=== PATIENT | female | born 1940 | race Caucasian/White ===

== ENCOUNTER 2017-01-03 05:52 | Inpatient (IN) | payer MEDICARE, OTHER ==
[2016-12-29 13:39] LABS: BASOPHILS 0.8 %; BASOPHILS ABSOLUTE 0.06 10/3/uL (0.0-0.16); EOSINOPHILS 4.3 %; EOSINOPHILS ABSOLUTE 0.33 10/3/uL (0.0-0.53); HEMATOCRIT 41.4 % (36.0-48.0); HEMOGLOBIN 14.2 g/dL (12.0-16.0); IMMATURE GRANULOCYTES 0.4 %; IMMATURE GRANULOCYTES ABSOLUTE 0.03 10/3/uL (0.0-0.11); LYMPHOCYTES 40.2 %; LYMPHOCYTES ABSOLUTE 3.12 10/3/uL (0.67-4.30); MANUAL DIFF NO %; MEAN CORPUS HGB CONC 34.3 g/dL (32.0-36.0); MEAN CORPUSCULAR HEMOGLOB 33.3 pg (26.0-34.0); MEAN PLATELET VOLUME 9.7 fL (9.2-13.0); MONOCYTES 6.4 %; NEUTROPHILS 47.9 %; NEUTROPHILS ABSOLUTE 3.72 10/3/uL (2.02-8.40); PLATELET COUNT 311 10/3/uL (150-400); RBC DISTRIBUTION WIDTH 13.6 % (12.0-16.0); RED CELL COUNT 4.27 10/6/uL (4.0-5.6); WHITE BLOOD CELLS 7.8 10/3/uL (4.5-10.5)
[2016-12-29 13:44] LABS: INTERNATIONAL NORMAL RATI 1.1 UNITS (-)
[2016-12-29 13:50] LABS: BUN (BLOOD UREA NITROGEN) 8 MG/DL (6-23); CALCIUM, SERUM 8.9 MG/DL (8.5-10.4); CHLORIDE, SERUM 109 MMOL/L (96-112); CO2 (CARBON DIOXIDE) 30 MMOL/L (24-34); CREATININE 0.57 MG/DL (0.55-1.02); GFR AFRICAN AMERICAN 104 ML/MIN (>=60); GFR NON AFRICAN AMERICAN 90 ML/MIN (>=60); GLUCOSE, SERUM 119 MG/DL (60-99); POTASSIUM, SERUM 3.8 MMOL/L (3.5-5.3); SODIUM, SERUM 147 MMOL/L (135-148)
[2016-12-29 14:41] LABS: ASCORBIC ACID (UR NOT ORDER) NEG (NEG); BILIRUBIN, URINE NEGATIVE (NEG); KETONE, URINE NEGATIVE (NEG); LEUKOCYTE ESTERASE(NOT OR SMALL (NEG); WBC (NOT ORDERED) (RFLEX) 3 (0-5)
--- NOTE | ~2017-01-03 | OP ---
Record Of Operation [facility] [address] [place]. [address] NAME: LEXII ALEJANDRO : 40 STATUS : DIS IN PAT#: [id number] AGE: 76 ADM/REG DATE : 01/03/17 MR#: [id number] REPORT SERV DATE: 01/15/17 DICTATED BY: KEENAN ROSAS DATE: 01/14/17 REPORT STATUS : Draft TRANSCRIBED BY: MENDEL DATE: 01/14/17 DATE OF PROCEDURE: 01/03/2017 PREOPERATIVE DIAGNOSIS: High-grade right internal carotid artery obstruction. POSTOPERATIVE DIAGNOSIS: High-grade right internal carotid artery obstruction. PROCEDURE PERFORMED: Right eversion carotid endarterectomy with intraoperative ultrasound guidance and permissive hypertension. ANESTHESIA: Local MAC. COMPLICATIONS: None. INDICATIONS FOR PROCEDURE: Secondary to this very pleasant 76-year-old female presenting with evidence of a high-grade right internal carotid artery obstruction, recommendations were made for endarterectomy. Risks and benefits were discussed. Consent was obtained. DETAILS OF PROCEDURE: The patient was brought to the endovascular operating room and placed in the supine position, prepped and draped in the routine sterile fashion with attention to the right neck. Intraoperative ultrasound was used to locate the common carotid artery and its bifurcation. This was marked clearly on the skin. This was then anesthetized and incision was then made after appropriate local and MAC anesthesia. Dissection proceeded down through the skin and subcutaneous tissues to the common carotid artery which was loop controlled. The external was then dissected free. The superior thyroidal artery was ligated and divided, and the external was loop controlled. The internal carotid artery was then dissected free to a point where there was a soft distal artery. Please note that 5000 units of heparin were given and allowed to circulate at that time. The common carotid artery was first encircled. Next, permissive hypertension was then instituted with driving the systolic blood pressure to 200. The patient remained neurologically intact with the ability to move her contralateral hand, and then the distal ICA was clamped followed by the loop control of the external clamping of the carotid. The internal carotid artery was amputated from the bulb to create a wide patch with eversion technique. We then removed very significant plaque, involving 90% of the artery to a nice tapered feather point. All plaque was then removed and irrigated clean. Again, the patient maintained normal neurologic integrity. The external was endarterectomized followed by the common. Once this was completed, the end-to-side anastomosis was then performed with a 6-0 Prolene on a C1 trolley - 1 needle in a running continuous stitch. This was hemostatic upon completion and Surgicel and FloSeal were used to promote localized hemostasis. Deep layers were then closed with Vicryl and Monocryl for the skin. Steri-Strip dressings were applied. The patient tolerated the procedure well and was transferred to recovery area stable condition with normal neurologic integrity. CL/MODL Record Of Operation [facility] [id number] [place]. [address] NAME: LEXII ALEJANDRO : 40 STATUS : DIS IN PAT#: [id number] AGE: 76 ADM/REG DATE : 01/03/17 MR#: [id number] REPORT SERV DATE: 01/15/17 DICTATED BY: KEENAN ROSAS DATE: 01/14/17 REPORT STATUS : Draft TRANSCRIBED BY: MENEDL DATE: 01/14/17 Keenan Rosas M.D. / [id number]
--- NOTE | ~2017-01-03 | CN ---
Consultation Report [facility] [address] [place]. [address] NAME: LEXII ALEJANDRO : 40 STATUS : ADM IN PAT#: [id number] AGE: 76 ADM/REG DATE : 01/03/17 MR#: [id number] REPORT SERV DATE: 01/04/17 DICTATED BY: DATE: REPORT STATUS : Draft TRANSCRIBED BY: MODL DATE: 01/04/17 NEUROLOGY CONSULTATION DATE OF CONSULTATION: 01/04/2017 REASON FOR CONSULT: Encephalopathy and abnormal CT scan of the brain. HISTORY OF PRESENT ILLNESS: This is a 76-year-old female, who presented to [facility] on 01/03/2017, for right carotid endarterectomy. The patient overnight received Ativan, secondary to agitation, as well as confusion, afterwards the patient was noted to be encephalopathic, with the patient became difficult to arouse. CT scan of the brain was obtained and concerning for right occipital stroke, age indeterminate was raised. The patient otherwise reports chronic vision difficulties since the back surgeries in May 2017 that is progressively worse. The patient has had recent MRI study over at [facility] ordered by Dr. Jonathan Stanton, for evaluation, due to the patient's complaint of vision difficulty, and not feeling well, which the patient was reportedly noted to have previous stroke, but no recent changes was noted. The family members reports that since this morning the patient's mental status has steadily improved, with the patient not being as drowsy or confused according to family members. 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 The patient's baseline was not noted to have any significant memory difficulties, but the patient's family reports after the patient's surgery and stroke, the patient does appear to have some difficulties with memory that seems to improve as well. Prior to hospitalization the patient reports not feeling well, but denies any other recent illness, fever, chills, nausea, vomiting, chest pain, or shortness of breath, but does complain of progressive vision difficulties, with the patient reports having more difficulties reading. PAST MEDICAL HISTORY: Apparently, the patient has had previous history of stroke, as well as intracranial hemorrhage, the patient in addition was also noted to have a history of seizure disorder managed by Dr. Stanton at [facility], with the patient has had recent MRI obtained by Dr. Stanton for evaluation of subjective progressive vision difficulties, the patient was also noted to have right internal carotid stenosis, with the patient noted to have right carotid endarterectomy on 01/03/2017. SOCIAL HISTORY: The patient denies tobacco, alcohol, or recreational drug usage. FAMILY HISTORY: No significant family history was otherwise reported by the patient. REVIEW OF SYSTEMS: Otherwise negative except for those mentioned in the HPI. ALLERGIES: THE PATIENT REPORTS ALLERGY TO ADHESIVE TAPE. Consultation Report [facility] [address] [place]. [address] NAME: LEXII ALEJANDRO : 40 STATUS : ADM IN PAT#: [id number] AGE: 76 ADM/REG DATE : 01/03/17 MR#: [id number] REPORT SERV DATE: 01/04/17 DICTATED BY: DATE: REPORT STATUS : Draft TRANSCRIBED BY: MODAnna DATE: 01/04/17 HOME MEDICATIONS: Folic acid, Neurontin, Plaquenil, Atarax, Avapro, Keppra, levothyroxine, lorazepam, methotrexate, Paxil, Lyrica, and multivitamin. PHYSICAL EXAMINATION: VITAL SIGNS: Overnight, the patient was noted to have vital signs with T-max of 98.2, heart rate of 69 to 102, respirations of 11 to 34 ,and blood pressure of 119 to 174/42 to 80. GENERAL: The patient is well-developed, well-nourished, in no acute distress. CARDIOVASCULAR: Regular rate and rhythm. No carotid bruits were otherwise auscultated. PULMONARY: Clear to auscultation bilaterally. NEUROLOGIC: Generally, the patient is alert and oriented to person, place, year, and month. Mild shortness of breath was noted at the time of evaluation, but otherwise the patient is able to follow simple and 2-step commands. Mild psychomotor retardation was noted. The patient was noted to have intact registration, mild difficulties with recall. Mild dysarthria was noted. No significant aphasia was seen at the time of evaluation. Cranial nerves 2 through 12, pupil equal and round and reactive to light. Extraocular eye movement was noted to be intact. No peripheral vision deficit was otherwise appreciated. The patient reports symmetrical facial sensation, symmetrical facial expression. Midline tongue. Normal palatal movement. Mild decreased hearing in bilateral ears. The patient was noted to have 4+/5 bilateral upper and lower extremity strength, with the patient noted to have mild dysmetria in the left upper extremity. [id number] examination otherwise normal [id number] examination on the right upper extremity. The patient reports decreased sensation in the right lower extremity. Otherwise, symmetrical sensation in bilateral upper extremities. Deep tendon reflex was 3+ throughout. The patient was noted to have mild stooped posture, and mildly unstable gait at the time of evaluation. LABORATORY STUDIES: Demonstrated white blood cell count of 12.2, hemoglobin of 12.0, hematocrit of 35.1, platelet count of 221. Chemistry panel; sodium 142, potassium 2.9, chloride 102, bicarb was 32, BUN of 5, creatinine 0.45, glucose of 140, calcium 7.7, magnesium 1.3. ABG demonstrated pH of 7.39, pCO2 of 46, PO2 of 75, bicarb of 26.9, O2 saturation of 94.8. CT scan of the brain was reviewed, concerned for right occipital lobe hypoattenuation was seen. Otherwise no hemorrhage was noted. Concern for age indeterminate stroke. IMPRESSION: 1. Encephalopathy. 2. Abnormal CT scan of the brain. We will recommend avoid further benzodiazepine. The patient was noted to have improved mentation this afternoon per family members. The patient does reports chronic difficulties with vision since back surgery in May 2016. No new vision difficulty was reported, and no new vision difficulty was found on examination. We will obtain MRI of the brain for evaluation. We will also check fasting lipid panel and hemoglobin A1c. In addition, we will also obtain records from [facility] and try to obtain previous MRI film from [facility], pending current MRI study. We will decide if further diagnostic study is needed. Consultation Report [facility] [address] [place]. [address] NAME: LEXII ALEJANDRO : 40 STATUS : ADM IN PAT#: [id number] AGE: 76 ADM/REG DATE : 01/03/17 MR#: [id number] REPORT SERV DATE: 01/04/17 DICTATED BY: DATE: REPORT STATUS : Draft TRANSCRIBED BY: MODL DATE: 01/04/17 RECOMMENDATION: 1. Fasting lipid panel and hemoglobin A1c. 2. MRI of the brain without contrast. 3. PT and OT. 4. We will continue aspirin. 5. We will obtain records from [facility] Dr. Stanton. 6. We will have the [facility] push most recent MRI of the brain, to our PAC system. 7. We will recommend avoid further benzodiazepine. 8. We are recommending to continue Keppra. [facility]/MODL Rahul Mandel MD / [id number] CC: Ann-Marie Lopez TRACY
[~2017-01-03 05:52] MED LIST: AT25 PO; FOLIC PO; LYRICA225 MG PO; MTX2.5 PO; MULTIPLE VIT PO; PLAQ200B PO
[2017-01-03 11:48] LABS: HEMOGLOBIN 12.6 g/dL (12.0-16.0)
[2017-01-03 11:49] LABS: HEMATOCRIT 36.8 % (36.0-48.0)
[2017-01-03] MEDS ORDERED: LYRICA225 MG PO (22:08)
[2017-01-03] MEDS ORDERED: LEVOTHYROXIN125 MCG PO (22:09)
[2017-01-03] MEDS ORDERED: PAX10 PO (22:09)
[2017-01-03] MEDS ORDERED: KEPPRA1000 MG PO (22:09)
[2017-01-03] MEDS ORDERED: AVAPRO300 MG PO (22:10)
[2017-01-03] MEDS ORDERED: ATV.5 PO (22:10)
[2017-01-04 08:10] LABS: BE (BASE EXCESS) 1.5 MEQ/L (0 +/- 2.5); CARBOXYHEMOGLOBIN 0.4 % (0-3); HCO3 (ACTUAL BICARBONATE) 26.9 MEQ/L (23-27); HEMOBLOGIN CONTENT 13.4 G/DL (12-16); INSTRUMENT SERIAL # 11843; METHEMOGLOBIN 0.6 % (0-3); O2 CONTENT 17.7 VOL% (18-24); PCO2 (CO2 TENSION) 46 MMHG (35-45); PO2 (O2 TENSION) 75 MMHG (79-93); pH 7.39 (7.37-7.43)
[2017-01-04 08:11] LABS: DEVICE NC; OPERATOR ID 18642; SAMPLE Arterial
[2017-01-04 11:48] LABS: BASOPHILS 0.2 %; BASOPHILS ABSOLUTE 0.03 10/3/uL (0.0-0.16); EOSINOPHILS 2.1 %; EOSINOPHILS ABSOLUTE 0.26 10/3/uL (0.0-0.53); HEMATOCRIT 35.1 % (36.0-48.0); IMMATURE GRANULOCYTES 0.4 %; IMMATURE GRANULOCYTES ABSOLUTE 0.05 10/3/uL (0.0-0.11); LYMPHOCYTES 14.8 %; LYMPHOCYTES ABSOLUTE 1.81 10/3/uL (0.67-4.30); MEAN CORPUS HGB CONC 34.2 g/dL (32.0-36.0); MEAN CORPUSCULAR HEMOGLOB 33.6 pg (26.0-34.0); MEAN CORPUSCULAR VOLUME 98.3 fL (80-100); MEAN PLATELET VOLUME 9.5 fL (9.2-13.0); MONOCYTES 12.6 %; MONOCYTES ABSOLUTE 1.54 10/3/uL (0.21-1.20); NEUTROPHILS 69.9 %; PLATELET COUNT 221 10/3/uL (150-400); RBC DISTRIBUTION WIDTH 13.7 % (12.0-16.0); RED CELL COUNT 3.57 10/6/uL (4.0-5.6)
[2017-01-04 11:49] LABS: MANUAL DIFF NO %; WHITE BLOOD CELLS 12.2 10/3/uL (4.5-10.5)
[2017-01-04 11:53] LABS: INTERNATIONAL NORMAL RATI 1.1 UNITS (-); PARTIAL THROMBO TIME 33.6 SEC (22.5-37.2); PROTIME (NOT ORD) 14.5 SEC (12.0-14.5)
[2017-01-04 12:04] LABS: A/G RATIO 0.9 (0.7-1.9); ALBUMIN 3.3 G/DL (3.5-5.0); ALKALINE PHOSPHATASE 95 U/L (45-117); BUN (BLOOD UREA NITROGEN) 5 MG/DL (6-23); CHLORIDE, SERUM 102 MMOL/L (96-112); CO2 (CARBON DIOXIDE) 32 MMOL/L (24-34); CREATININE 0.45 MG/DL (0.55-1.02); GFR AFRICAN AMERICAN 113 ML/MIN (>=60); GFR NON AFRICAN AMERICAN 97 ML/MIN (>=60); GLOBULIN 3.5 G/DL (2.5-4.1); GLUCOSE, SERUM 140 MG/DL (60-99); SGOT(AST) 23 U/L (5-40); SGPT(ALT) 17 U/L (5-65); SODIUM, SERUM 142 MMOL/L (135-148); TOTAL BILIRUBIN 0.6 MG/DL (0-1.2); TOTAL PROTEIN 6.8 G/DL (6.0-8.5); TROPONIN I <0.02 NG/ML (<0.05)
[2017-01-04 12:05] LABS: CALCIUM, SERUM 7.7 MG/DL (8.5-10.4); POTASSIUM, SERUM 2.9 MMOL/L (3.5-5.3)
[2017-01-04 22:44] LABS: POTASSIUM, SERUM 2.9 MMOL/L (3.5-5.3)
[2017-01-05 04:47] LABS: BASOPHILS 0.4 %; BASOPHILS ABSOLUTE 0.04 10/3/uL (0.0-0.16); EOSINOPHILS 2.8 %; EOSINOPHILS ABSOLUTE 0.29 10/3/uL (0.0-0.53); HEMATOCRIT 33.3 % (36.0-48.0); HEMOGLOBIN 11.4 g/dL (12.0-16.0); IMMATURE GRANULOCYTES 0.4 %; IMMATURE GRANULOCYTES ABSOLUTE 0.04 10/3/uL (0.0-0.11); LYMPHOCYTES 22.4 %; LYMPHOCYTES ABSOLUTE 2.34 10/3/uL (0.67-4.30); MANUAL DIFF NO %; MEAN CORPUS HGB CONC 34.2 g/dL (32.0-36.0); MEAN CORPUSCULAR HEMOGLOB 33.8 pg (26.0-34.0); MEAN CORPUSCULAR VOLUME 98.8 fL (80-100); MEAN PLATELET VOLUME 9.8 fL (9.2-13.0); MONOCYTES 10.7 %; MONOCYTES ABSOLUTE 1.12 10/3/uL (0.21-1.20); NEUTROPHILS 63.3 %; PLATELET COUNT 212 10/3/uL (150-400); RBC DISTRIBUTION WIDTH 13.6 % (12.0-16.0); RED CELL COUNT 3.37 10/6/uL (4.0-5.6); WHITE BLOOD CELLS 10.4 10/3/uL (4.5-10.5)
[2017-01-05 05:07] LABS: CALCIUM, SERUM 7.9 MG/DL (8.5-10.4); CHLORIDE, SERUM 107 MMOL/L (96-112); CHOL/HDL RATIO(NOT ORDER) 2.7 (0-5); CHOLESTEROL 173 MG/DL (< 200); CO2 (CARBON DIOXIDE) 30 MMOL/L (24-34); CREATININE 0.52 MG/DL (0.55-1.02); GFR AFRICAN AMERICAN 108 ML/MIN (>=60); GFR NON AFRICAN AMERICAN 93 ML/MIN (>=60); GLUCOSE, SERUM 160 MG/DL (60-99); HDL CHOLESTEROL 63 MG/DL (> 49); LDL CHOLESTEROL 94 MG/DL (< 130); NON-HDL CHOLESTEROL 110 MG/DL (< 160); POTASSIUM, SERUM 3.4 MMOL/L (3.5-5.3); SODIUM, SERUM 146 MMOL/L (135-148); TRIGLYCERIDE 81 MG/DL (< 150)
[2017-01-05 05:13] LABS: BUN (BLOOD UREA NITROGEN) 9 MG/DL (6-23)
[2017-05-31] MEDS ORDERED: ZOVIRAX400 MG PO (12:51)
[2017-05-31] MEDS ORDERED: Z100 PO (12:52)
[2017-05-31] MEDS ORDERED: PLAVIX PO (12:53)
[2017-05-31] MEDS ORDERED: LIPITOR40 PO (12:54)
[2017-05-31] MEDS ORDERED: HYDROCHLOROT25 MG PO (12:55)
[2017-05-31] MEDS ORDERED: TRILEP300 PO (12:56)
[2017-05-31] MEDS ORDERED: KLOR-CON M2020 MEQ PO (12:57)
[2017-05-31] MEDS ORDERED: ZANAFLEX 4 MG TA4 MG PO (12:57)
[2017-05-31] MEDS ORDERED: VITC500 PO (12:58)
[2017-05-31] MEDS ORDERED: VITAMIN D1000 UNI1 PO (12:59)
== END 2017-01-05 14:47 | disposition home or self-care (01) | DRG 37 ==
LOC: SDC/OF 05:52 → PACU 10:25 → CVICU 11:13
PROVIDERS: Specialist
PROC: 03CH0ZZ Extirpation of Matter from Right Common Carotid Artery, Open Approach (ICD-10-PCS; principal; 2017-01-03 07:45)
DX: I65.29 Occlusion and stenosis of unspecified carotid artery (principal); G92 Toxic encephalopathy; E11.65 Type 2 diabetes mellitus with hyperglycemia; M32.9 Systemic lupus erythematosus, unspecified; K21.9 Gastro-esophageal reflux disease without esophagitis; T42.4X5A Adverse effect of benzodiazepines, initial encounter; Z86.73 Personal history of transient ischemic attack (TIA), and cerebral infarction without residual deficits; M19.91 Primary osteoarthritis, unspecified site; I10 Essential (primary) hypertension; E03.9 Hypothyroidism, unspecified; Z90.710 Acquired absence of both cervix and uterus; Z98.890 Other specified postprocedural states; Z83.3 Family history of diabetes mellitus; Z80.8 Family history of malignant neoplasm of other organs or systems; Z88.8 Allergy status to other drugs, medicaments and biological substances; Z79.899 Other long term (current) drug therapy
CPT/HCPCS: 70450; 70551; 71010; 71020; 80048; 80053; 80061; 81001; 82805; 82962; 83036; 83735; 84132; 84484; 85014; 85018; 85025; 85610; 85730; 87086; 87641; 88304; 88311; 93005; A9270-GY; J0690; J1200; J2250; J2370; J3010; J8610